=== PATIENT | female | born 1955 | race Caucasian/White ===

== ENCOUNTER → 2023-12-01 10:37 | Outpatient (REF) | payer MEDICARE, BC, SELFPAY | LOC: RAD 10:37 | PROVIDERS: ATTENDING PHYSICIAN Podiatrist Foot & Ankle Surgery; FAMILY PHYSICIAN Family Medicine | DX: I70.213 Atherosclerosis of native arteries of extremities with intermittent claudication, bilateral legs (principal); M79.604 Pain in right leg; M79.605 Pain in left leg | CPT/HCPCS: 93922; 93925 ==